=== PATIENT | male | born 1950 | race African-American/Black ===

== ENCOUNTER 2016-08-07 11:33 | Emergency (ER) | payer MEDICARE, BC ==
[~2016-08-07 11:33] MED LIST: ALLEGRA180 PO; ASAB PO; COLCRYS0.6 MG PO; COSOPT OPH; DSS PO; ENDOCET1 TA3 PO; FLEX PO; FLOMAX4 PO; HABIT14 TOP; K500 PO; KLOR-CON M2020 MEQ PO; LIDODERM T; LOZOLTAB PO; LUMIGAN OPH; MOBIC7.5 PO; NORV10 PO; ORGAN-I NR200 MG PO; P20 PO; PCET PO; PERCOCET1 TA4 PO; PRAVACHOL40 MG PO; RANITIDINE300 MG PO; SPIRIVA INH; TYLENOL ARTH650 MG PO; VOLTAREN1 % TOP; ZANTAC300 MG PO
[2016-08-07 11:57] LABS: BASOPHILS 0.2 %; BASOPHILS ABSOLUTE 0.01 10/3/uL (0.0-0.16); EOSINOPHILS 0.8 %; EOSINOPHILS ABSOLUTE 0.05 10/3/uL (0.0-0.53); IMMATURE GRANULOCYTES 0.2 %; IMMATURE GRANULOCYTES ABSOLUTE 0.01 10/3/uL (0.0-0.11); LYMPHOCYTES 44.5 %; LYMPHOCYTES ABSOLUTE 2.69 10/3/uL (0.67-4.30); MEAN CORPUSCULAR HEMOGLOB 33.5 pg (26.0-34.0); MONOCYTES 7.4 %; MONOCYTES ABSOLUTE 0.45 10/3/uL (0.21-1.20); NEUTROPHILS 46.9 %; NEUTROPHILS ABSOLUTE 2.84 10/3/uL (2.02-8.40); RBC DISTRIBUTION WIDTH 13.9 % (12.0-16.0); RED CELL COUNT 4.99 10/6/uL (4.7-6.1)
[2016-08-07 11:59] LABS: ER CBC TAT 0 Hrs 08 Mins; HEMATOCRIT 47.4 % (40.0-51.0); HEMOGLOBIN 16.7 g/dL (13.6-17.8); MANUAL DIFF NO %; MEAN CORPUS HGB CONC 35.2 g/dL (32.0-36.0); PLATELET COUNT 173 10/3/uL (150-400); WHITE BLOOD CELLS 6.1 10/3/uL (4.5-10.5)
[2016-08-07 12:04] LABS: ASCORBIC ACID (UR NOT ORDER) NEG (NEG); BILIRUBIN, URINE NEGATIVE (NEG); ER URINALYSIS TAT 0 Hrs 13 Mins; KETONE, URINE NEGATIVE (NEG); LEUKOCYTE ESTERASE(NOT OR TRACE (NEG); NITRITE (URINE) NEG (NEG); WBC (NOT ORDERED) (RFLEX) 5 (0-5)
[2016-08-07 12:14] LABS: A/G RATIO 1.5 (0.7-1.9); ALBUMIN 4.5 G/DL (3.5-5.0); CALCIUM, SERUM 9.5 MG/DL (8.5-10.4); CHLORIDE, SERUM 104 MMOL/L (96-112); CO2 (CARBON DIOXIDE) 28 MMOL/L (24-34); CREATININE 1.05 MG/DL (0.70-1.30); GFR AFRICAN AMERICAN 84 ML/MIN (>=60); GFR NON AFRICAN AMERICAN 73 ML/MIN (>=60); GLOBULIN 3.1 G/DL (2.5-4.1); GLUCOSE, SERUM 85 MG/DL (60-99); POTASSIUM, SERUM 3.9 MMOL/L (3.5-5.3); SGOT(AST) 14 U/L (5-40); SGPT(ALT) 14 U/L (5-65); SODIUM, SERUM 140 MMOL/L (135-148); TOTAL PROTEIN 7.6 G/DL (6.0-8.5)
[2016-08-07 12:16] LABS: ALKALINE PHOSPHATASE 102 U/L (45-117); BUN (BLOOD UREA NITROGEN) 16 MG/DL (6-23); TOTAL BILIRUBIN 1.1 MG/DL (0-1.2)
== END 2016-08-07 13:06 | disposition home or self-care (01) ==
LOC: ER 11:33
PROVIDERS: Nurse Practitioner
DX: M54.5 Low back pain (principal); K59.00 Constipation, unspecified; I10 Essential (primary) hypertension
CPT/HCPCS: 74176; 80053; 81001; 83690; 85025; 96374; 99284; A9270-GY; J2405